=== PATIENT | male | born 1965 | race Caucasian/White ===

== ENCOUNTER 2016-10-28 05:27 | Emergency (ER) | payer OTHER ==
[~2016-10-28] VITALS: Ht 188 cm; Wt 90.0 kg
[2016-10-28 05:28] VITALS: BP 142/82; PULSE 120; RESP 16; O2SAT 98
[2016-10-28 05:45] LABS: BASOPHILS % (AUTO) 0.3 % (0-3); EOSINOPHILS % (AUTO) 1.1 % (0-5); MONOCYTES % (AUTO) 9.2 % (4-12); Mean Corpuscular Hemoglobin 30.8 pg (27.0-35.0); Mean Corpuscular Volume 90 fL (81-100); NEUTROPHILS % (AUTO) 72.6 % (40-74); Platelet Count 185 bil/L (150-400)
[2016-10-28 06:02] LABS: TROPONIN T 0.01 ug/L (0.0-0.011)
[2016-10-28 06:13] LABS: Magnesium 1.8 mg/dL (1.6-2.6)
--- NOTE | 2016-10-28 06:19 | ED.REPORT ---
HPI-General Illness Date of Service October 28, 2016 ED Provider: Susanna Grigsby MD Patient is a 51 year old male with a history of alcoholism and hypertension who presents to the ED via EMS onset 0400. Associated symptoms include shortness of breath and tingling into his left arm and jaw. He rates the pain as a 4/10. The patient reports that he was at [facility], who recommended he be transferred to the ED due to high blood pressure and heart rate. He was seen at [place] and given an Ativan taper. Patient's last dose of Ativan was at 0300. Prior to arrival to the ED, EMS gave the patient ASA and nitro, which helped lower his pain. The patient has been sober the past year and had a relapse a week ago. Nursing Notes Stated Complaint: CHEST PAIN Chief Complaint: Chest Pain Nursing Notes Reviewed: Yes Allergies: Coded Allergies: No Known Allergies (Unverified , 10/28/16) Scheduled Metoprolol Succinate ER (Metoprolol Succinate ER) 100 Mg Tab.er.24h 100 MG PO DAILY Omeprazole (Omeprazole) 40 Mg Capsule.dr 40 MG PO DAILY General Time Seen by MD: 06:02 Transferred From: Rehab facility Chief Complaint Chest pain Hx Obtained From: Patient Arrived By: Ambulance Sudden in Onset?: Yes Onset Occurred: 1 - 4 hours ago Symptom Duration: Since onset Radiation: : Arm left: Jaw Severity: Current: Pain level 4 out of 10 Recent Healthcare: No recent hospitalization Similar Sx Previous: No Past Medical History Past Medical History alcoholism hypertension Smoking History Never Smoker Social History Alcohol Use: In recovery Ambulatory Status Independent Review of Systems Full Review of Systems Respiratory: Reports: Shortness of breath, Denies: Non-productive cough Cardiovascular: Reports: Chest pain GI: Denies: Vomiting Musculoskeletal: Reports: Extremity pain (left arm) Skin: Denies Diaphoresis Complete sys rev & neg: except as marked. Physical Exam Vital Signs Vital Signs Date Time Temp Pulse Resp B/P Pulse Ox O2 Delivery O2 Flow Rate FiO2 10/28/16 10:55 82 16 146/91 100 Room Air 10/28/16 08:00 72 15 134/81 97 Room Air 10/28/16 07:30 84 19 122/80 98 Room Air 10/28/16 07:00 110 21 111/56 97 Room Air 10/28/16 05:28 36.4 120 16 142/82 98 Room Air Initial VS: Reviewed General/Constitutional: Awake, Alert Head / Eyes: Atraumatic, Normocephalic, PERRL, EOMI Neck: Atraumatic, Supple, Full range of motion Respiratory / Chest: Atraumatic, Breath sounds NL, Breath sounds = bilat, No respiratory distress Cardiovascular: Heart rate NL, Regular rhythm, Heart sounds NL, No murmurs Abdomen: Atraumatic, Soft, No guarding, No rebound, BS normoactive Tenderness/Guarding/Rebound: Positive: Tender LLQ..., Tender LUQ... Upper Extremities Upper Extremity / MS: Atraumatic, Full range of motion, No edema Lower Extremity / Pelvis / MS: Atraumatic, Full range of motion, No edema Skin: Atraumatic, Color NL, No rash, Warm, Dry Neurologic: Oriented X3, Speech NL, No motor deficits, No sensory deficits Psychiatric: Affect NL, Mood NL Interpretation & Diagnostics Lab Results Interpretation Result Diagram: 10/28/16 0535 10/28/16 0535 Test 10/28/16 05:35 10/28/16 08:43 White Blood Count 7.5th/mm3 (3.8-10.1) Red Blood Count 4.25mil/mm3 (4.40-5.80) Hemoglobin 13.1g/dL (13.8-17.2) Hematocrit 38.1% (41.0-50.0) Mean Corpuscular Volume 90fL (81-100) Mean Corpuscular Hemoglobin 30.8pg (27.0-35.0) Mean Corpuscular Hemoglobin Concent 34.4% (32.0-37.0) Red Cell Distribution Width 12.4% (12.3-15.4) Platelet Count 185bil/L (150-400) Neutrophils (%) (Auto) 72.6% (40-74) Lymphocytes (%) (Auto) 16.8% (14-46) Monocytes (%) (Auto) 9.2% (4-12) Eosinophils (%) (Auto) 1.1% (0-5) Basophils (%) (Auto) 0.3% (0-3) Sodium Level 135mEq/L (134-144) Potassium Level 3.6mEq/L (3.5-5.2) Chloride Level 93mEq/L (97-108) Carbon Dioxide Level 25mmol/L (18-29) Blood Urea Nitrogen 9mg/dL (6-24) Creatinine 0.84mg/dL (0.76-1.27) Estimat Glomerular Filtration Rate 102mL/min (>59) Glucose Level 93mg/dL (60-99) Calcium Level 9.3mg/dL (8.5-10.1) Magnesium Level 1.8mg/dL (1.6-2.6) Total Bilirubin 1.2mg/dL (0.0-1.2) Aspartate Amino Transf (AST/SGOT) 42U/L (0-50) Alanine Aminotransferase (ALT/SGPT) 23U/L (0-44) Alkaline Phosphatase 90U/L (25-150) Total Protein 7.7g/dL (6.4-8.4) Albumin 4.2g/dL (3.4-5.0) Lipase 17U/L (13-60) Troponin T 0.010ug/L (0.0-0.011) ECG Interpretation ECG Interpretation: Sinus tachycardia, rate 133 Atrial premature complex Time: 05:34 Interpreted by: ED physician Time: 08:38 Interpreted by: ED physician Normal ECG Interpretation: Normal rate (80), Normal sinus rhythm X-Ray Chest Interpretation Chest Xray Interpretation: IMPRESSION: No acute cardiopulmonary disease. Dictated by: Maggy Senior M.D. on 10/28/2016 at 8:33 Approved by: Maggy Senior M.D. on 10/28/2016 at 8:33 View: Portable, 1 view Interpretation / Wet Read by: Interpret - Radiologist Re-Eval/Medical Decision Time of Eval: 08:34 Re-Evaluation/Progress Note: Patient reports that he is more shaky and is having chest pain. Ordered a repeat EKG and Troponin. Time of Eval: 10:10 Re-Evaluation/Progress Note: Patient reports he is still having mild chest pain. Discussed plan for discharge. The patient understands and agrees to the plan for discharge. All questions were addressed. Counseled Regarding: Diagnosis, Lab results, Need for follow-up, When/why to return to ED Discharge & Departure Primary Impression: Non-cardiac chest pain Additional Impression: Alcohol withdrawal Complication of substance-induced condition: with unspecified complication Qualified Code: F10.239 - Alcohol dependence with withdrawal, unspecified Disposition: Home Discharge Condition All VS Reviewed: Yes Condition: Stable Patient Instructions: Alcohol Withdrawal (ED), Noncardiac Chest Pain (ED) Additional Instructions: Your EKG and lab results looked normal, which is reassuring. This chest pain does NOT seem to be related to your heart. It is most likely due to your stomach and complicate by your recent alcohol binge and not taking your omeprazole or metoprolol. You can return to [facility]. Continue taking 100mg of Metoprolol daily (you need a dose today) and 40 mg of Omeprazole (don't need to start until tomorrrow). these have been electronically sent to [email or web address], make sure you take the remainder of the prescription home with you after detox. Finish the Ativan taper you were given. I hope getting care at [facility] helps get you sober again. Please return to the emergency department if you develop any new or worsening symptoms. Referrals: [facility] Delmi Attestation Portions of this note were transcribed by Isela Thomas. I, Dr. Grigsby personally performed the history, physical exam and medical decision-making; I reviewed and confirmed the accuracy of the information in the transcribed note. Signed by: Delmi Richey, 10/28/16 and 1040. copies to: [facility] Susanna Grigsby MD October 28, 2016 06:19 [place] Thomas October 28, 2016 06:36
[2016-10-28] MEDS ORDERED: 0.9% Sodium Chloride 1,000 ML IV ONE (06:37)
[2016-10-28] MEDS ORDERED: Ondansetron 2 mg/mL 2 mL Inj IVPUSH ONE (06:40)
[2016-10-28 07:00] VITALS: BP 111/56; PULSE 110; RESP 21; O2SAT 97
[2016-10-28 07:30] VITALS: BP 122/80; PULSE 84; RESP 19; O2SAT 98
[2016-10-28 08:00] VITALS: BP 134/81; PULSE 72; RESP 15; O2SAT 97
--- NOTE | 2016-10-28 08:34 | DRSVH ---
PROCEDURE: X-RAY CHEST ONE VIEW, PORTABLE ([id number]) INDICATIONS: 48 year-old man with chest pain. TECHNIQUE: One view of the chest was acquired. COMPARISON: None. FINDINGS: Surgical changes and devices: None. Lungs and pleura: No pleural effusions or pneumothorax. Lungs are clear. Mediastinum: Mediastinal contours appear normal. Heart size is normal. Bones and chest wall: No suspicious bony lesions. Overlying soft tissues appear unremarkable. IMPRESSION: No acute cardiopulmonary disease. Dictated by: Maggy Senior M.D. on 10/28/2016 at 8:33 Approved by: Maggy Senior M.D. on 10/28/2016 at 8:33
[2016-10-28] MEDS ORDERED: OMEP40CA36 PO ×2 (10:32→10:39)
[2016-10-28] MEDS ORDERED: METO-274 PO ×2 (10:32→10:39)
[2016-10-28 10:55] VITALS: BP 146/91; PULSE 82; RESP 16; O2SAT 100
== END 2016-10-28 11:17 | disposition home or self-care (01) ==
LOC: EDBD 05:27 → SED 05:27
DX: R07.89 Other chest pain (principal); F10.239 Alcohol dependence with withdrawal, unspecified; I10 Essential (primary) hypertension
CPT/HCPCS: 36415; 71010; 80053; 82948; 83690; 83735; 84484; 85025; 93005; 96374; 96375; 96376; 99285; J2405; J3360; J7030